=== PATIENT | female | born 1940 | race Caucasian/White ===

== ENCOUNTER 2025-01-06 15:50 | Inpatient (IN) | payer MEDICARE ==
[~2025-01-06] VITALS: Ht 152.4 cm; Wt 46.1 kg
[2025-01-06] MEDS ORDERED: HALOPERIDOL LACTATE 5 MG/1 ML VIAL ONE (16:23)
[2025-01-06] MEDS ORDERED: diphenhydrAMINE 50 MG/1 ML VIAL ONE (16:23)
[2025-01-06] MEDS: diphenhydrAMINE 50 MG/1 ML VIAL IM ONE (16:27)
[2025-01-06] MEDS: HALOPERIDOL LACTATE 5 MG/1 ML VIAL IM ONE (16:27)
[2025-01-06 16:34] LABS: PLATELET COUNT (AUTO) 298 K/uL (179-408); RED BLOOD CELL COUNT(AUTO) 3.84 MIL/uL (3.63-4.92); RED CELL DISTRIBUTION WIDTH 14.9 % (12.3-17.7); WHITE BLOOD COUNT (AUTO) 4.9 K/uL (3.8-11.8)
[2025-01-06 16:42] LABS: CREATININE 0.5 mg/dL (0.6-1.3); SODIUM SERUM 144 mmol/L (136-145); UREA NITROGEN, BLOOD 14 mg/dL (7-18)
[2025-01-06 16:45] LABS: ETHANOL < 3 MG/DL (0-10)
[2025-01-06 16:48] LABS: ASPARTATE AMINOTRANSFERASE 15 U/L (15-37); TOTAL PROTEIN, SERUM 6.1 g/dL (6.4-8.2)
[2025-01-06 16:56] LABS: NT-PRO BNP 284 pg/mL (0-125)
[2025-01-06] MEDS ORDERED: MEROPENEM 1GM/NS 100ML IVPB **ER PYXIS ONLY IV ONE (17:34)
[2025-01-06] MEDS: IV NORMAL SALINE 1000 ML BAG IV ONE (17:42)
[2025-01-06] MEDS: MEROPENEM 1,000 MG in IV NORMAL SALINE 100 ML IV ONE (17:42)
[2025-01-06 18:22] LABS: *CLARITY,URINE TURBID (CLEAR); *COLOR,URINE YELLOW (YELLOW)
[2025-01-06 18:23] LABS: *BILIRUBIN,URIN NEGATIVE (NEGATIVE); *BLOOD, URINE 3+ (NEGATIVE); *KETONES,URINE TRACE (NEGATIVE); *PROTEIN,URINE 2+ (NEGATIVE); *UROBILINOGEN,URINE 0.2 E.U./dl (NORMAL); LEUKOCYTE ESTERASE ,URINE 3+ (NEGATIVE); NITRITE, URINE NEGATIVE (NEGATIVE); UGLUCOSE NEGATIVE (NEGATIVE)
[2025-01-06 18:30] LABS: *AMPHETAMINE, URINE NEGATIVE (NEGATIVE); *BARBITURATE, URINE NEGATIVE (NEGATIVE); *BENZODIAZEPINE, URINE POSITIVE (NEGATIVE); *CANNABINOID, URINE NEGATIVE (NEGATIVE); *COCCAINE, URINE NEGATIVE (NEGATIVE); *OPIATE, URINE NEGATIVE (NEGATIVE); *PHENCYCLIDINE SCREEN,URINE NEGATIVE (NEGATIVE); FENTANYL, URINE NEGATIVE (NEGATIVE)
[2025-01-06 18:33] LABS: SQUAMOUS EPITHELIAL CELL,UR MODERATE /HPF (NONE SEEN)
[2025-01-06 20:07] VITALS: BP 117/71
[2025-01-06] MEDS ORDERED: ONDANSETRON 4 MG/2 ML VIAL IV PRN (20:45)
[2025-01-06] MEDS ORDERED: TEMAZEPAM 15 MG CAPSULE PO PRN (20:45)
[2025-01-06] MEDS: DOCUSATE SODIUM 100 MG CAPSULE PO SCH (21:53)
[2025-01-06 22:19] VITALS: BP 144/72; TEMP 98; O2SAT 100
[2025-01-06] MEDS: TEMAZEPAM 7.5 MG CAPSULE PO PRN (22:27)
[2025-01-07] MEDS: MORPHINE SULFATE 2 MG/1 ML DISP.SYRIN IV PRN (03:36)
[2025-01-07 06:13] VITALS: BP 130/63; TEMP 98.6; O2SAT 100
[2025-01-07 06:53] LABS: PLATELET COUNT (AUTO) 317 K/uL (179-408); RED BLOOD CELL COUNT(AUTO) 3.56 MIL/uL (3.63-4.92); RED CELL DISTRIBUTION WIDTH 14.4 % (12.3-17.7); WHITE BLOOD COUNT (AUTO) 4.9 K/uL (3.8-11.8)
[2025-01-07 07:02] LABS: ASPARTATE AMINOTRANSFERASE 15 U/L (15-37); CREATININE 0.4 mg/dL (0.6-1.3); SODIUM SERUM 144 mmol/L (136-145); TOTAL PROTEIN, SERUM 5.6 g/dL (6.4-8.2); UREA NITROGEN, BLOOD 10 mg/dL (7-18)
[2025-01-07 07:44] VITALS: BP 110/75; TEMP 98.7; O2SAT 99
[2025-01-07] MEDS: PANTOPRAZOLE SODIUM 40 MG VIAL IV SCH (09:15)
[2025-01-07] MEDS ORDERED: ACET-2030 PO (10:50)
[2025-01-07] MEDS ORDERED: ALBU8.5H8 INH (10:51)
[2025-01-07] MEDS ORDERED: BISA10SU61 RC (10:52)
[2025-01-07] MEDS ORDERED: LACT-215 PO (10:53)
[2025-01-07] MEDS ORDERED: DOCU100C36 PO (10:54)
[2025-01-07] MEDS ORDERED: CHOL10005 PO (10:54)
[2025-01-07] MEDS ORDERED: DIVA125C2 PO (10:54)
[2025-01-07] MEDS ORDERED: NA P133E RC (10:55)
[2025-01-07] MEDS ORDERED: FURO20TA4 PO (10:56)
[2025-01-07] MEDS ORDERED: MEGE20TA4 PO (10:56)
[2025-01-07] MEDS ORDERED: MAGN400O6 PO (10:57)
[2025-01-07] MEDS ORDERED: MULT-225 PO (11:14)
[2025-01-07] MEDS ORDERED: AMIN30LI2 PO (11:15)
[2025-01-07] MEDS ORDERED: POTA-88 PO (11:15)
[2025-01-07] MEDS ORDERED: MIRT-121 PO (11:16)
[2025-01-07] MEDS ORDERED: QUET25TA PO (11:16)
[2025-01-07] MEDS ORDERED: TIOT4MIS3 IH (11:17)
[2025-01-07] MEDS ORDERED: TEMA15CA PO (11:18)
[2025-01-07 11:53] VITALS: BP 137/94; TEMP 98.3; O2SAT 99
[2025-01-07 15:33] VITALS: BP 104/68; TEMP 98.6; O2SAT 99
[2025-01-07] MEDS: DIVALPROEX SPRINKLE 125 MG CAP.SPRINK PO STA (15:39)
[2025-01-07] MEDS: QUETIAPINE FUMARATE 25 MG TABLET PO STA (15:39)
[2025-01-07] MEDS ORDERED: FLEET ENEMA 133 ML BOTTLE RC PRN (16:00)
[2025-01-07] MEDS ORDERED: MAGNESIUM HYDROXIDE 30 ML LIQUID UDC PO PRN (16:00)
[2025-01-07] MEDS ORDERED: LACTOSE FREE FOOD PO SCH (17:00)
[2025-01-07] MEDS: PROTEIN SUPPLEMENT (PROSTAT) 30 ML LIQUID PO SCH (18:09)
[2025-01-07] MEDS: NUTRITIONAL SUPPLEMENT PO SCH (18:10)
[2025-01-07 19:20] VITALS: BP 115/68; TEMP 98.4; O2SAT 100
[2025-01-07] MEDS: MIRTAZAPINE 15 MG TABLET PO SCH (20:32)
[2025-01-07] MEDS: QUETIAPINE FUMARATE 25 MG TABLET PO SCH (20:33)
[2025-01-07] MEDS: DIVALPROEX SPRINKLE 125 MG CAP.SPRINK PO SCH (22:44)
[2025-01-08 05:36] VITALS: BP 135/81; TEMP 98.7; O2SAT 100
[2025-01-08] MEDS: CHOLECALCIFEROL 1,000 UNIT TABLET PO SCH (08:19)
[2025-01-08] MEDS: MULTIVIT, IRON, MIN NO. 8, FA TABLET PO SCH (08:19)
[2025-01-08] MEDS ORDERED: Medication Not On Formulary EA (Multivitamins (Multiple Vitamins) 1 TAB) PO SCH (09:00)
[2025-01-08 11:06] VITALS: BP 113/57; TEMP 98.3; O2SAT 99
[2025-01-08 15:26] VITALS: BP 111/64; TEMP 97.8; O2SAT 98
[2025-01-08 19:27] VITALS: BP 105/57; TEMP 99.1; O2SAT 99
[2025-01-08 20:29] VITALS: O2SAT 98
[2025-01-09 05:55] VITALS: BP 136/72; TEMP 98.7; O2SAT 100
[2025-01-09] MEDS: PANTOPRAZOLE ORAL SUSPENSION 40 MG SUSPDR.PKT PO SCH (06:24)
[2025-01-09 06:53] LABS: PLATELET COUNT (AUTO) 289 K/uL (179-408); RED BLOOD CELL COUNT(AUTO) 3.31 MIL/uL (3.63-4.92); RED CELL DISTRIBUTION WIDTH 14.2 % (12.3-17.7); WHITE BLOOD COUNT (AUTO) 5.3 K/uL (3.8-11.8)
[2025-01-09 07:11] LABS: ASPARTATE AMINOTRANSFERASE 10 U/L (15-37); CREATININE 0.5 mg/dL (0.6-1.3); SODIUM SERUM 143 mmol/L (136-145); TOTAL PROTEIN, SERUM 5.7 g/dL (6.4-8.2); UREA NITROGEN, BLOOD 13 mg/dL (7-18)
[2025-01-09 11:33] VITALS: BP 132/60; TEMP 98.2; O2SAT 100
[2025-01-09 14:13] LABS: BAND % (MANUAL) 5 % (0-10); EOSINOPHILS % (MANUAL) 4 % (0-8); LYMPHOCYTES % (MANUAL) 21 % (20-40); MONOCYTES % (MANUAL) 16 % (2-10); NEUTROPHILS % (MANUAL) 54 % (42-75); PLATELET ESTIMATE ADEQUATE
[2025-01-09 16:00] VITALS: BP 116/69; TEMP 98.8; O2SAT 97
[2025-01-09 19:24] VITALS: BP 105/57; TEMP 98.4; O2SAT 19; O2SAT 91
[2025-01-09 20:22] VITALS: O2SAT 97
[2025-01-10 05:30] VITALS: BP 108/54; TEMP 98.1; O2SAT 92
[2025-01-10] MEDS: ACETAMINOPHEN 325 MG TABLET PO PRN (06:17)
[2025-01-10 11:18] VITALS: O2SAT 93
[2025-01-10 11:33] VITALS: BP 122/73; TEMP 97.7; O2SAT 100
[2025-01-10] MEDS ORDERED: PANT40SU2 PO (14:46)
[2025-01-10] MEDS ORDERED: ACID1TAB4 PO (14:46)
[2025-01-10] MEDS ORDERED: CEPH500C2 PO (14:46)
[2025-01-10] MEDS ORDERED: LACT-215 PO (14:46)
[2025-01-10] MEDS ORDERED: ACET325T53 PO (14:46)
== END 2025-01-10 16:05 | DRG 871 ==
LOC: ER 15:50 → MEDSURG3 21:29 → TELE3 21:40 → MEDSURG3 01-07 10:45
PROVIDERS: ADMIT Internal Medicine; ATTEND Internal Medicine
DX: A41.51 Sepsis due to Escherichia coli [E. coli] (principal); E43 Unspecified severe protein-calorie malnutrition; G92.8 Other toxic encephalopathy; N39.0 Urinary tract infection, site not specified; Z68.1 Body mass index [BMI] 19.9 or less, adult; F03.92 Unspecified dementia, unspecified severity, with psychotic disturbance; D68.59 Other primary thrombophilia; I50.32 Chronic diastolic (congestive) heart failure; R65.20 Severe sepsis without septic shock; R41.82 Altered mental status, unspecified; R62.7 Adult failure to thrive; I25.2 Old myocardial infarction; Z74.09 Other reduced mobility; E78.5 Hyperlipidemia, unspecified; J44.9 Chronic obstructive pulmonary disease, unspecified; I11.0 Hypertensive heart disease with heart failure; R73.03 Prediabetes; Z87.442 Personal history of urinary calculi; R00.0 Tachycardia, unspecified; I87.309 Chronic venous hypertension (idiopathic) without complications of unspecified lower extremity; M81.0 Age-related osteoporosis without current pathological fracture; Z87.01 Personal history of pneumonia (recurrent); Z99.81 Dependence on supplemental oxygen; I73.9 Peripheral vascular disease, unspecified
CPT/HCPCS: 36415; 70030-TC; 71045; 82378; 83605; 83735; 84100; 84443; 84484; 85025; 85730; 87040; 87077; 87086; 93005; 94760; A4606; A4663; G0378; G0480; J0696; J1200; J1630; J2185; J2270; J2470; J7040